=== PATIENT | male | born 1965 | race Hispanic/Latino ===

== ENCOUNTER 2017-03-29 07:26 | Inpatient (IN) | payer BC ==
--- NOTE | 2017-03-29 08:24 | ED PDOC ---
HPI: SOB/CHF/COPD Time Seen by Provider: 03/29/17 07:46 Chief Complaint (Nursing): Shortness Of Breath Chief Complaint (Provider): shortness of breath History Per: Patient History/Exam Limitations: no limitations Onset/Duration Of Symptoms: Days (x 1) Additional Complaint(s): Renato Arriaga is a 51 year old male, with no previous medical history, who presents to the ED with complaints of shortness of breath associated with left calf pain, left ankle swelling and coughing which happened prior to arrival. Patient denies any chest pain and reports similar symptoms occurred yesterday but resolves spontaneously. Patient states to traveling back from [place] 3 days ago which is also when he sprained his left ankle. PMD: Dr. Teddy Kwon Past Medical History Reviewed: Historical Data, Nursing Documentation, Vital Signs Vital Signs: Last Vital Signs Temp 97.6 F 03/29/17 07:41 Pulse 97 H 03/29/17 07:41 Resp 18 03/29/17 07:55 BP 122/75 03/29/17 07:41 Pulse Ox 95 03/29/17 12:28 - Medical History PMH: No Chronic Diseases - Family History Family History: States: Unknown Family Hx - Home Medications Home Medications: Ambulatory Orders Medication Instructions Recorded Glucosa Fonseca 2Kcl/Chondroitin Fonseca 1 cap PO DAILY 03/29/17 [Glucosamine & Chondroitin Cap] Melatonin [Melatonin] 25 mg PO HS 03/29/17 Multivit-Minerals/Folic Acid 1 tab PO DAILY 03/29/17 [Adult Multi Gummies] - Allergies Allergies/Adverse Reactions: Allergies Allergy/AdvReac Type Severity Reaction Status Date / Time No Known Allergies Allergy Verified 03/29/17 07:37 Wells Criteria for PE - Wells Criteria for Pulmonary Embolism Clinical Signs and Symptoms of DVT: Yes P.E is #1 Diagnosis, or Equally Likely: Yes Heart Rate >100: No Immobilization at least 3 days;Surgery previous 4 weeks: No Previous, objectively diagnosed PE or DVT: No Hemoptysis: No Malignancy w/treatment within 6 months, or palliative: No Total Score: 4 Review of Systems ROS Statement: Except As Marked, All Systems Reviewed And Found Negative Cardiovascular: Negative for: Chest Pain, Palpitations Respiratory: Positive for: Cough, SOB with Exertion Musculoskeletal: Positive for: Leg Pain (left calf pain ), Other (left ankle swelling ) Physical Exam - Reviewed Nursing Documentation Reviewed: Yes Vital Signs Reviewed: Yes - Physical Exam Appears: Positive for: Well, Non-toxic, No Acute Distress Head Exam: Positive for: ATRAUMATIC, NORMAL INSPECTION, NORMOCEPHALIC Skin: Positive for: Normal Color, Warm, DRY Eye Exam: Positive for: EOMI, Normal appearance, PERRL ENT: Positive for: Normal ENT Inspection Neck: Positive for: Normal, Painless ROM, Supple Cardiovascular/Chest: Positive for: Regular Rate, Rhythm Respiratory: Positive for: Normal Breath Sounds. Negative for: Decreased Breath Sounds, Accessory Muscle Use, Wheezing, Respiratory Distress Pulses-Dorsalis Pedis (L): 2+ Pulses-Dorsalis Pedis (R): 2+ Gastrointestinal/Abdominal: Positive for: Normal Exam, Bowel Sounds, Soft. Negative for: Tenderness Back: Positive for: Normal Inspection Extremity: Positive for: Normal ROM, Calf Tenderness (left), Capillary Refill ( < 2 seconds ). Negative for: Tenderness, Pedal Edema, Deformity, Swelling Neurologic/Psych: Positive for: Alert, Oriented. Negative for: Motor/Sensory Deficits - Laboratory Results Result Diagrams: 03/29/17 08:36 03/29/17 08:36 - ECG Interpretation Of ECG: NSR @ 96, nonspecific ST abnormality. O2 Sat by Pulse Oximetry: 95 (RA) Pulse Ox Interpretation: Normal - Radiology X-Ray: Read By Radiologist X-Ray Interpretation: No Acute Disease - Progress ED Course And Treament: Pt administered Heparin 8000U IVP and drip initiated. - Physician Consult Information Time Consulting Physican Contacted: 12:00 Physician Contacted: Lee Espinoza Outcome Of Conversation: Admit to ICU. - Critical Care Total Time (In Min): 30 Medical Decision Making Medical Decision Making: Initial Impression: Dyspnea r/o Pulmonary embolism Initial Plan: * EKG * CXR * D-dimer * US duplex lower extremities * Troponin I * PTT * PT * PROBNP * urine dipstick * reevaluation 11:18 CXR FINDINGS: LUNGS: Hyperinflation, manifestations of COPD. No active pulmonary disease. PLEURA: No significant pleural effusion identified. No pneumothorax apparent. CARDIOVASCULAR: Normal. OSSEOUS STRUCTURES: No significant abnormalities. VISUALIZED UPPER ABDOMEN: Normal. OTHER FINDINGS: None. IMPRESSION: No active disease. 11:47 CT chest FINDINGS: PULMONARY ARTERIES: There is extensive pulmonary embolism involving the main pulmonary artery and proximal right and left pulmonary arteries. There is thrombus seen in right upper, middle and lower lobe pulmonary artery vessels and branches as well as left upper and lower lobe pulmonary artery and branches. . AORTA: No acute findings. No thoracic aortic aneurysm. LUNGS: Small infiltrate superior segment left lower lobe. Rule out infarct. Possible pneumonia. PLEURAL SPACES: Unremarkable. No effusion or pneuomothorax. HEART: Normal heart size. There is straightening of the intraventricular septum which may be indicative of right ventricular strain. Please correlate with the EKG findings. LYMPH NODES: No lymphadenopathy. BONES, CHEST WALL: Minimal anterior wedge compression deformity of the T12 vertebra, age indeterminate. No other fracture identified. OTHER FINDINGS: 11 mm nonobstructing calculus mid left kidney. IMPRESSION: Extensive pulmonary thromboembolism involving the main pulmonary artery right and left pulmonary arteries and lobar and segmental vessels bilaterally. Evidence indicative of possible right ventricular strain. Small infiltrate in superior segment left lower lobe which may reflect pneumonia, atelectasis or infarct in the setting of extensive pulmonary embolism. Additional minor findings as above. The above findings were discussed by telephone with Dr. Carlisle at 11:45 a.m. on 03/29/2017. 11:[address] Best paged. 12:25 Dr. Teddy Michel ([facility]ASHEED @ [facility]) notified of patient's diagnosis. Scribe Attestation: Documented by Kassandra Reyes, acting as a scribe for Kassandra Carlisle MD. Provider Scribe Attestation: All medical record entries made by the Scribe were at my direction and personally dictated by me. I have reviewed the chart and agree that the record accurately reflects my personal performance of the history, physical exam, medical decision making, and the department course for this patient. I have also personally directed, reviewed, and agree with the discharge instructions and disposition. Disposition - Clinical Impression Clinical Impression: Saddle pulmonary embolus - Patient ED Disposition Is Patient to be Admitted: Yes - Disposition Disposition Time: 12:05 Condition: SERIOUS - Pt Status Changed To: Hospital Disposition Of: Inpatient - Admit Certification Admit to Inpatient:: After my assessment, the patient will require hospitalization for at least two midnights. This is because of the severity of symptoms shown, intensity of services needed, and/or the medical risk in this patient being treated as an outpatient. - POA Present On Arrival: Deep Vein Thrombosis / PE
[2017-03-29 08:44] LABS: BASO % 0.2 % (0.0-2.0); EOS # 0.3 K/uL (0.0-0.7); EOS % 2.3 % (0.0-4.0); HEMOGLOBIN 15.5 g/dL (12.0-18.0); LYMPH % 18.5 % (20.0-40.0); MEAN CORPUSCULAR HEMOGLOBIN 30.3 pg (27.0-31.0); MEAN CORPUSCULAR HGB CONC 33.7 g/dL (33.0-37.0); MEAN PLATELET VOLUME 7.4 fl (7.2-11.7); MONO # 0.8 K/uL (0.0-0.8); MONO % 7.1 % (0.0-10.0); NEUT % 71.9 % (50.0-75.0); NRBC % 0.1 % (0.0-0.0); RBC 5.13 Mil/uL (4.40-5.90); RED CELL DISTRIBUTION WIDTH 13.3 % (11.5-14.5); WHITE BLOOD COUNT 11.1 K/uL (4.8-10.8)
[2017-03-29 09:03] LABS: ALB/GLOB RATIO 1.5 (1.0-2.1); ALBUMIN 4.6 g/dL (3.5-5.0); ALT/SGPT 49 U/L (21-72); AST/SGOT 40 U/L (17-59); BLOOD UREA NITROGEN 10 mg/dl (9-20); CALCIUM 9.8 mg/dL (8.4-10.2); GFR AFRICAN-AMERICAN > 60; GFR NON-AFRICAN AMERICAN > 60
[2017-03-29 09:06] LABS: INR 1.1 (0.9-1.2); PARTIAL THROMBOPLASTIN TIME 30.7 Seconds (25.6-37.1)
[2017-03-29] MEDS ORDERED: Sodium Chloride 0.9% 50 ML IV ONE (09:48)
[2017-03-29] MEDS ORDERED: Iodixanol 320 MG/ML 100 ML BOTTLE IV ONE (09:48)
[2017-03-29] MEDS ORDERED: Sod Polystyrene Sulf 15 gm/60 ml Oral Susp PO STA (10:49)
--- NOTE | 2017-03-29 11:20 | RAD ---
HISTORY: Shortness of breath. COMPARISON: No prior. TECHNIQUE: Chest PA and lateral FINDINGS: LUNGS: Hyperinflation, manifestations of COPD. No active pulmonary disease. PLEURA: No significant pleural effusion identified. No pneumothorax apparent. CARDIOVASCULAR: Normal. OSSEOUS STRUCTURES: No significant abnormalities. VISUALIZED UPPER ABDOMEN: Normal. OTHER FINDINGS: None. IMPRESSION: No active disease. No preliminary report provided by emergency department personnel.
[2017-03-29] MEDS ORDERED: Sod Polystyrene Sulf 15 gm/60 ml Oral Susp ONE (11:32)
--- NOTE | 2017-03-29 11:49 | CT ---
PROCEDURE: CT Chest with contrast (Pulmonary Angiogram) HISTORY: MARTINEZ COMPARISON: None available. TECHNIQUE: Axial computed tomography images were obtained of the chest in the pulmonary arterial phase of enhancement. Coronal and sagittal reformatted images were created and reviewed. Intravenous contrast dose: 95 mL Visipaque 320 Radiation dose: Total exam DLP = 465.92 mGy-cm. This CT exam was performed using one or more of the following dose reduction techniques: Automated exposure control, adjustment of the mA and/or kV according to patient size, and/or use of iterative reconstruction technique. FINDINGS: PULMONARY ARTERIES: There is extensive pulmonary embolism involving the main pulmonary artery and proximal right and left pulmonary arteries. There is thrombus seen in right upper, middle and lower lobe pulmonary artery vessels and branches as well as left upper and lower lobe pulmonary artery and branches. . AORTA: No acute findings. No thoracic aortic aneurysm. LUNGS: Small infiltrate superior segment left lower lobe. Rule out infarct. Possible pneumonia. PLEURAL SPACES: Unremarkable. No effusion or pneuomothorax. HEART: Normal heart size. There is straightening of the intraventricular septum which may be indicative of right ventricular strain. Please correlate with the EKG findings. LYMPH NODES: No lymphadenopathy. BONES, CHEST WALL: Minimal anterior wedge compression deformity of the T12 vertebra, age indeterminate. No other fracture identified. OTHER FINDINGS: 11 mm nonobstructing calculus mid left kidney. IMPRESSION: Extensive pulmonary thromboembolism involving the main pulmonary artery right and left pulmonary arteries and lobar and segmental vessels bilaterally. Evidence indicative of possible right ventricular strain. Small infiltrate in superior segment left lower lobe which may reflect pneumonia, atelectasis or infarct in the setting of extensive pulmonary embolism. Additional minor findings as above. The above findings were discussed by telephone with Dr. Carlisle at 11:45 a.m. on 03/29/2017.
[2017-03-29] MEDS ORDERED: Heparin 25,000units in D5W 25,000 UNITS/250 ML BAG IV SCH (12:00)
[2017-03-29] MEDS ORDERED: Heparin25000 units/250ml 1/2NS 25,000 UNITS/250 ML BAG IV ONE (12:06)
[2017-03-29] MEDS: Heparin25000 units/250ml 1/2NS 25,000 UNITS/250 ML BAG IV SCH (12:17)
[2017-03-29 12:31] LABS: VENOUS BLOOD GAS PCO2 61 mmHg (40-60); VENOUS BLOOD GAS PO2 18 mm/Hg (30-55); VENOUS BLOOD PH 7.32 (7.32-7.43)
--- NOTE | 2017-03-29 14:17 | CP.CCUPN ---
CCU Subjective - Physician Review Subjective (Free Text): Consultation for ICU admission and initial mgmt.: 61M, PMH only for 30pk yr smoker, admitted today after c/o SOB and MARTINEZ x 2 days , after returning from plane flight from [place]. He aslo suatined a left ankle sprain while traveling and has subsequently developed mild LLE swelling an dpain over distal LLE. Denies any CP, palpitations, wheezing, dizziness, headaches, or focal weakness. Initial eval in ER showed bilat saddle emboli and distal bilat emboli with possible pulm infarct left base, and possible RV strain as visualized on CT chest angio imaging. He shows PSO2 95% on RA oxygen, and BP 122/75 with HR 97. No visible distress and he is comfortable at bed rest. He denies any recent fevers or chills, no cough. Heparin drip started in ER, 1st Trop is negative; to be admitted to Dr. Aggarwal service. Allergies: NKDA Home Meds: None ROS: as above, no other pertinent negs or positives on 10+ system review. Other PMSFH: All recent nursing and physician documentation reviewed and no new information noted relevant to current problems. MAJOR IMPRESSIONS: 1. Acute PTE with pulm infarct, submassive type ( provoked by long sedentary trip) - not associated with hypotension or hypoxemia. 2. Mild Hyperkalemia 3. Smoker / COPD PLAN: 1. Titrating IV Heparin drip for now. Will discuss risks/benefits with PMD / PULM regarding thrombolytic therapy or catheter directed clot lysis. 2. ECHO, serial Trops. 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 4. IVF hydration, will not specifically lower K at this time, check repeat lytes with ongoing IVFs. No arrhythmias noted on telemetry nor any pronounced T waves. 5. No previous h/o of hypercoagulable events, see no immediate need for w/u at this time. 6. Venous Doppler US legs. 7. Nicotine patch. CCU Objective - Vital Signs / Intake & Output Vital Signs (Last 4 hours): Vital Signs Pulse BP Pulse Ox 03/29/17 13:10 78 132/76 03/29/17 13:00 78 132/76 100 03/29/17 12:29 95 - Physical Exam Head: Positive for: Normocephalic Pupils: Positive for: PERRL Extroacular Muscles: Positive for: EOMI Conjunctiva: Negative for: Injected, Icteric Mouth: Positive for: Moist Mucous Membranes Pharnyx: Positive for: Normal. Negative for: ERYTHEMA, EXUDATE Neck: Positive for: Normal Range of Motion. Negative for: JVD, Lymphadenopathy Respiratory/Chest: Positive for: Clear to Auscultation. Negative for: Accessory Muscle Use, Wheezes Cardiovascular: Positive for: Regular Rate and Rhythm. Negative for: Murmurs, Rub Abdomen: Positive for: Normal Bowel Sounds. Negative for: Tenderness, Distention Lower Extremity: Positive for: Edema (LLE only), CALF TENDERNESS (LLE), NORMAL PULSES Neurological: Positive for: GCS=15, CN II-XII Intact, Speech Normal, Motor Func Grossly Intact, Norm Deep Tendon Reflexes Skin: Positive for: Warm. Negative for: Rashes - Medications Active Medications: Active Medications Generic Name Dose Route Start Last Admin Trade Name Freq PRN Reason Stop Dose Admin Heparin Sodium/Sodium Chloride 25,000 units in 250 mls @ 18 mls/hr 03/29/17 12 :15 03/29/17 12:17 Heparin 12199 Units/250ml 1/2 Normal Saline IV 18 mls/hr .[id number] ARELIS Administration Protocol - Patient Studies Lab Studies: Lab Studies 03/29/17 Range/Units 12:11 pO2 18 L (30-55) mm/Hg VBG pH 7.32 (7.32-7.43) VBG pCO2 61 H (40-60) mmHg VBG HCO3 24.8 mmol/L VBG Total CO2 33.3 H (22-28) mmol/L VBG O2 Sat (Calc) 26.7 L (40-65) % VBG Base Excess 3.0 H (0.0-2.0) mmol/L VBG Potassium 4.5 (3.6-5.2) mmol/L Sodium 137.0 (132-148) mmol/L Chloride 99.0 (98-107) mmol/L Glucose 141 H (75-110) mg/dL Lactate 2.9 H (0.7-2.1) mmol/L FiO2 21.0 % Venous Blood Potassium 4.5 (3.6-5.2) mmol/L Laboratory Results - last 24 hr 03/29/17 12:11 pO2 18 L VBG pH 7.32 VBG pCO2 61 H VBG HCO3 24.8 VBG Total CO2 33.3 H VBG O2 Sat (Calc) 26.7 L VBG Base Excess 3.0 H VBG Potassium 4.5 Sodium 137.0 Chloride 99.0 Glucose 141 H Lactate 2.9 H FiO2 21.0 Venous Blood Potassium 4.5 Radiology Interpretations (Free Text): CT CHest Angio study results reviewed CXR: (my interp) shows clear lung kaplan. Critical Care Progress Note - Extremities/Vascular Does the Patient have a Central Venous Catheter?: No Does the Patient need a Central Venous Catheter?: No Does the Patient have a [place] Catheter?: No Does the Patient need a [place] Catheter?: No - Prophylaxis GI Prophylaxis GI: Not Indicated - Prophylaxis DVT Prophylaxis DVT: Not Indicated (Already on Heparin Drip IV)
--- NOTE | 2017-03-29 14:18 | US ---
PROCEDURE: HISTORY: LLE pain, recent travel COMPARISON: None available. TECHNIQUE: Real-time ultrasound scan of the veins with color flow, spectral waveform analysis and compression FINDINGS: Isolated acute DVT confined to the posterior tibial vein. Proximal deep venous system from the common femoral veins to the popliteal vein within normal limits. IMPRESSION: Segmental calf thrombosis confined to the left posterior tibial vein.
[2017-03-29] MEDS ORDERED: Pneumococcal 23-Valent Vaccine IM ONE (16:00)
--- NOTE | 2017-03-30 00:51 | HP ---
HISTORY OF PRESENT ILLNESS: Mr. Arriaga is a 51-year-old male, who was admitted via the emergency room after he experienced shortness of breath on exertion for the past two days, worse on the day of admission. He recently returned from a flight from [place] and indicates that he has sprained his left ankle while he was there, but . For the past several days, he had shortness of breath on and off and it was worsen on the day of admission and he was seen in the emergency room where scan of the chest was remarkable for saddle pulmonary emboli with possible pulmonary infarction on the left base and right ventricular strain. He denies chest pain or palpitation and O2 saturations 95% on room air at present and vital signs are remarkable for blood pressure of 122/75 and pulse rate of 97. PAST MEDICAL HISTORY: Noncontributory. SOCIAL HISTORY: He smokes 1 pack of cigarettes daily, does not drink alcohol, indicates that he quit drinking alcohol several years ago. REVIEW OF SYSTEMS: Essentially unremarkable. PHYSICAL EXAMINATION GENERAL: The patient is alert and oriented, appears to be comfortable. At present, has a heparin drip infusion at bedside. VITAL SIGNS: Stable. HEENT: Mouth shows fair hygiene. JVP flat. CARDIOPULMONARY: Regular. No murmurs or gallop. LUNGS: Clear. No chest wall tenderness. ABDOMEN: Soft, nontender and no organomegaly. EXTREMITIES: Shows no edema or cyanosis, but mild tenderness of left ankle. GENITAL AND RECTAL: Deferred. CENTRAL NERVOUS SYSTEM: Grossly intact. LABORATORY DATA: Remarkable for WBC of 11.1, hemoglobin of 15.5, platelet count of 156,000. Sodium 140, potassium 5.3, BUN of 10, creatinine 0.9, troponin 0.074, pro-BNP 52. Venous blood gas is remarkable for pH of 7.32, pO2 of 18, pCO2 of 61. O2 saturations 26.7, this is on room air. On chest x-ray, no active cardiopulmonary disease noted. EKG is remarkable for normal sinus rhythm, possible left atrial enlargement. Non-specific ST-T changes. Ultrasound of lower extremities is remarkable for segmental calf thrombosis compared to left posterior tibial vein. CT scan of the chest is remarkable for extensive pulmonary thromboembolism involving the main pulmonary artery rather than left pulmonary artery, lobar and segmental vessel bilaterally with indicative of possible rise ventricular strain, small infiltrated superior segmental left lower lobe, which may reflect pneumonia, atelectasis or infarct in the setting of extensive pulmonary embolism. PT 12.0, INR 1.1, D-dimer 4046. IMPRESSION: Acute saddle pulmonary emboli with pulmonary infarction, history of chronic cigarette smoking, one has to rule out mild chronic obstructive pulmonary disease, left lower extremity trauma with ankle sprain, which is probably the start of the pulmonary emboli and is remarkable for deep venous thrombosis. PLAN: Continue IV heparin hydration. We will probably begin oral anticoagulation once IV heparin is therapeutic. No need to workup for coagulopathy in view of the patient's history of traumatic left lower extremity, which appears to be the start of the trauma and the patient also recently returned from a long trip to [place], which accounts for his sedentary activity that probably predisposed him to pulmonary embolism. We will continue therapy as ordered. The case was extensively discussed with the patient. Further therapy would depend on findings. Igor Best MD
[2017-03-30] MEDS: Heparin25000 units/250ml 1/2NS 25,000 UNITS/250 ML BAG IV SCH (03:15)
[2017-03-30 05:43] LABS: BLOOD UREA NITROGEN 9 mg/dl (9-20); CALCIUM 9.5 mg/dL (8.4-10.2); GFR AFRICAN-AMERICAN > 60; GFR NON-AFRICAN AMERICAN > 60
--- NOTE | 2017-03-30 10:36 | CP.PCM.PN ---
Subjective - Date & Time of Evaluation Date of Evaluation: 03/30/17 Time of Evaluation: 10:38 - Subjective Subjective: c/o dry cough with mild pleuritic chest discomfort no sob no hemoptysis Objective - Vital Signs/Intake and Output Vital Signs (last 24 hours): Temp Pulse Resp BP Pulse Ox 98.4 F 82 10 L 143/64 99 03/30/17 08:00 03/30/17 08:00 03/30/17 08:00 03/30/17 08:00 03/30/17 08:00 Intake and Output: 03/30/17 03/30/17 06:59 18:59 Intake Total 99 Balance 99 - Medications Medications: Current Medications Famotidine (Pepcid) 40 mg PO HS [facility] Last Admin: 03/29/17 22:08 Dose: 40 mg Heparin Sodium/Sodium Chloride (Heparin 32837 Units/250ml 1/2 Normal Saline) 25 ,000 units in 250 mls @ 18 mls/hr IV .[id number] [facility] PRN Reason: Protocol Last Admin: 03/30/17 03:15 Dose: 16 mls/hr Nicotine (Nicoderm Cq) 1 patch TD DAILY [facility] Last Admin: 03/29/17 17:17 Dose: Not Given - Labs Labs: 03/30/17 05:00 PT 12.0 Seconds (9.8-13.1) 03/29/17 08:36 INR 1.1 (0.9-1.2) 03/29/17 08:36 APTT 68.5 Seconds (25.6-37.1) H 03/30/17 08:45 - Constitutional Appears: No Acute Distress - Head Exam Head Exam: ATRAUMATIC, NORMAL INSPECTION, NORMOCEPHALIC - Eye Exam Eye Exam: EOMI, Normal appearance, PERRL Pupil Exam: NORMAL ACCOMODATION, PERRL - ENT Exam ENT Exam: Mucous Membranes Moist, Normal Exam - Neck Exam Neck Exam: Full ROM, Normal Inspection. absent: Lymphadenopathy - Respiratory Exam Respiratory Exam: Clear to Ausculation Bilateral, NORMAL BREATHING PATTERN - Cardiovascular Exam Cardiovascular Exam: REGULAR RHYTHM, +S1, +S2. absent: Murmur - GI/Abdominal Exam GI & Abdominal Exam: Soft, Normal Bowel Sounds. absent: Tenderness - Rectal Exam Rectal Exam: NORMAL INSPECTION - Extremities Exam Extremities Exam: Full ROM, Normal Capillary Refill, Normal Inspection. absent : Joint Swelling, Pedal Edema - Back Exam Back Exam: NORMAL INSPECTION - Neurological Exam Neurological Exam: Alert, Awake, CN II-XII Intact, Normal Gait, Oriented x3 - Psychiatric Exam Psychiatric exam: Normal Affect, Normal Mood - Skin Skin Exam: Dry, Intact, Normal Color, Warm Assessment and Plan - Assessment and Plan (Free Text) Assessment: saddle pulmonary emboli with r heart strain positive troponin probably due to cardiac strain l dvt Plan: cardiac eval echo and ekg will probably place on po pradaxa and d/c in am if cleared by cardiology advised to follow up with pmd for coagulopathy workup
[2017-03-30] MEDS ORDERED: Promethazine 6.25 MG/5 ML CUP PO PRN (10:38)
[2017-03-30] MEDS ORDERED: Promethazine 12.5 mg/10 ml Syrup PO PRN (10:45)
--- NOTE | 2017-03-30 11:12 | CP.PCM.CON ---
History of Present Illness - History of Present Illness History of Present Illness: this 51-year-old man arrived in the emergency room been short of breath and describing chest discomfort which had just started. The patient had flown in after having taken a 16 hour flight and having been immobilized in a cramped seat with a sprained left ankle as well. He denies any history of hemoptysis and denies any lightheadedness. The patient has no prior history of chronic lung disease or heart disease and has never been hospitalized. He reports having undergone year surgery which was an outpatient procedure. He has not been on any medication. He denies alcohol intake prior to this trip and denies any recreational drug use. He is not a smoker. He denies any history of hypertension or diabetes. He has never experienced any chest pain or symptoms of congestive cardiac failure. In fact he reports being athletic. Physical examination shows a middle aged pleasant well-built well-nourished manwe'll beats comfortably at 14 breaths per minute and carry on a conversation without any difficulty. His heart rate was 74 bpm regular and his blood pressure is 122/74 mmHg. His jugular venous pressure was not elevated there was no edema over his lower ex images. The pedal pulses were well felt. Next images were warm and nailbeds were pink. There was no central or peripheral cyanosis. On room air, his pulse oximetry was 97-98%. His apex was not palpable. His first and second heart sounds were normal. There was no murmur or gallop there were no rales. His abdomen was soft liver and spleen are not palpable. There was no calf tenderness and Homans sign was negative. His electrocardiogram at admission showed sinus rhythm with a heart rate of 96 bpm but otherwise normal pattern. His electrocardiogram today also shows sinus rhythm and a normal EKG pattern with a heart rate which is in 70s. There is no evidence of right axis deviation and a right bundle branch block. Review of his echocardiogram shows a mildly enlarged left ventricle with its wall motion pattern suggestive off mildly depressed right ventricular systolic function. There was no tricuspid regurgitation. Left ventricular function normally. The septal motion was also appeared normal. His lab data show normal hemoglobin and hematocrit with normal platelet count. His complete metabolic profile was also normal. His troponin at admission was normal and this morning was elevated at 0.[address] angiogram of the chest was reviewed. Impression: acute pulmonary embolism with elevated troponin level secondary to right ventricular strain. The patient is anticoagulated with heparin. He could be switched onto Xarelto. He is hemodynamically stable and adequately oxygenated. I have reassured the patient that the elevation in his troponin has a benign significance and essentially reflects right ventricular strain as a consequence of his pulmonary emboli. I have discussed this with his primary care physician. Past Patient History - Past Medical History & Family History Past Medical History?: No - Past Social History Smoking Status: Light Smoker < 10 Cigarettes Daily - CARDIAC Hx Cardiac Disorders: No - PULMONARY Hx Respiratory Disorders: No - NEUROLOGICAL Hx Neurological Disorder: No - HEENT Hx HEENT Problems: No - RENAL Hx Chronic Kidney Disease: No - ENDOCRINE/METABOLIC Hx Endocrine Disorders: No - HEMATOLOGICAL/ONCOLOGICAL Hx AIDS: No Hx Human Immunodeficiency Virus (HIV): No - INTEGUMENTARY Hx Dermatological Problems: No - MUSCULOSKELETAL/RHEUMATOLOGICAL Hx Falls: No - GENITOURINARY/GYNECOLOGICAL Hx Genitourinary Disorders: No - PSYCHIATRIC Hx Substance Use: No - SURGICAL HISTORY Hx Surgeries: No Other/Comment: "ear surgery" both ears - ANESTHESIA Hx Anesthesia Reactions: No Hx Malignant Hyperthermia: No Has any member of the family had a problem w/ anesthesia?: No Meds Allergies/Adverse Reactions: Allergies Allergy/AdvReac Type Severity Reaction Status Date / Time No Known Allergies Allergy Verified 03/29/17 07:37 - Medications Medications: Current Medications Acetaminophen (Tylenol 325mg Tab) 650 mg PO Q4 PRN PRN Reason: Pain, moderate (4-7) Famotidine (Pepcid) 40 mg PO HS [facility] Last Admin: 03/29/17 22:08 Dose: 40 mg Heparin Sodium/Sodium Chloride (Heparin 69253 Units/250ml 1/2 Normal Saline) 25 ,000 units in 250 mls @ 18 mls/hr IV .[id number] [facility] PRN Reason: Protocol Last Admin: 03/30/17 03:15 Dose: 16 mls/hr Nicotine (Nicoderm Cq) 1 patch TD DAILY [facility] Last Admin: 03/29/17 17:17 Dose: Not Given Promethazine HCl (Phenergan Syrup) 12.5 mg PO Q6 PRN PRN Reason: Cough Results - Vital Signs Recent Vital Signs: Last Vital Signs Temp 98.4 F 03/30/17 08:00 Pulse 82 03/30/17 08:00 Resp 10 L 03/30/17 08:00 BP 143/64 03/30/17 08:00 Pulse Ox 99 03/30/17 08:00 - Labs Result Diagrams: 03/29/17 08:36 03/30/17 05:00 Labs: Laboratory Results - last 24 hr 03/29/17 03/29/17 03/30/17 12:11 19:21 02:30 APTT 90.3 H D 72.5 H D pO2 18 L VBG pH 7.32 VBG pCO2 61 H VBG HCO3 24.8 VBG Total CO2 33.3 H VBG O2 Sat (Calc) 26.7 L VBG Base Excess 3.0 H VBG Potassium 4.5 Sodium 137.0 Chloride 99.0 Glucose 141 H Lactate 2.9 H FiO2 21.0 Potassium Carbon Dioxide Anion Gap BUN Creatinine Est GFR ( Amer) Est GFR (Non-Af Amer) Random Glucose Calcium Troponin I Venous Blood Potassium 4.5 03/30/17 03/30/17 05:00 08:45 APTT 68.5 H pO2 VBG pH VBG pCO2 VBG HCO3 VBG Total CO2 VBG O2 Sat (Calc) VBG Base Excess VBG Potassium Sodium 137 Chloride 102 Glucose Lactate FiO2 Potassium 4.2 Carbon Dioxide 26 Anion Gap 12 BUN 9 Creatinine 0.9 Est GFR ( Amer) > 60 Est GFR (Non-Af Amer) > 60 Random Glucose 102 Calcium 9.5 Troponin I 0.1470 H* Venous Blood Potassium
--- NOTE | 2017-03-30 17:26 | CARD ---
APPROVED REPORT EXAM: Two-dimensional and M-mode echocardiogram with Doppler and color Doppler. Other Information Quality : GoodRhythm : NSR INDICATION Pulmonary Embolism 2D DIMENSIONS IVSd0.99 (0.7-1.1cm)LVDd4.98 (3.9-5.9cm) LVOT Diameter2.71 (1.8-2.4cm)PWd0.97 (0.7-1.1cm) IVSs1.18 (0.8-1.2cm)LVDs3.38 (2.5-4.0cm) FS (%) 32.1 %PWs1.31 (0.8-1.2cm) M-Mode DIMENSIONS Left Atrium (MM)3.91 (2.5-4.0cm)IVSd1.12 (0.7-1.1cm) Aortic Root2.91 (2.2-3.7cm)LVDd4.82 (4.0-5.6cm) Aortic Cusp Exc.2.12 (1.5-2.0cm)PWd1.12 (0.7-1.1cm) IVSs1.62 cmFS (%) 43 % LVDs2.74 (2.0-3.8cm)PWs1.68 cm Mitral Valve E/A ratio0.0 TDI E/Lateral E'0.0E/Medial E'0.0 LEFT VENTRICLE The left ventricle is normal size. There is normal left ventricular wall thickness. The left ventricular function is normal. The left ventricular ejection fraction is 55% There is normal LV segmental wall motion. The left ventricular diastolic function is normal. No left ventricle thrombus noted on this study. There is no ventricular septal defect visualized. There is no left ventricular aneurysm. There is no mass noted in the left ventricle. RIGHT VENTRICLE The right ventricle is moderately to severely dilated. There is normal right ventricular wall thickness. Systolic function is severely reduced. Right Ventricular septal motion is flattened. ATRIA The left atrium size is normal. The right atrium size is normal. The interatrial septum is intact with no evidence for an atrial septal defect. AORTIC VALVE The aortic valve is normal in structure and function. No aortic regurgitation is present. There is no aortic valvular stenosis. There is no aortic valvular vegetation. MITRAL VALVE The mitral valve is normal in structure and function. There is no evidence of mitral valve prolapse. There is no mitral valve stenosis. There is no mitral valve regurgitation noted. TRICUSPID VALVE The tricuspid valve is normal in structure and function. There is no tricuspid valve regurgitation noted. There is no tricuspid valve prolapse or vegetation. There is no tricuspid valve stenosis. PULMONIC VALVE The pulmonary valve is normal in structure and function. There is no pulmonic valvular regurgitation. There is no pulmonic valvular stenosis. GREAT VESSELS The aortic root is normal in size. The ascending aorta is normal in size. The IVC is normal in size and collapses >50% with inspiration. PERICARDIAL EFFUSION The pericardium appears normal. There is no pleural effusion. <Conclusion> Normal LV Systolic Function Moderate to Severe RV Dilitation Severe RV Hypokinesis
--- NOTE | 2017-03-30 17:41 | CARD ---
APPROVED REPORT EKG Measurement Heart [id number] <Conclusion> Normal sinus rhythm with sinus arrhythmia T wave abnormality, consider anterior ischemia Abnormal ECG
--- NOTE | 2017-03-30 18:15 | CARD ---
APPROVED REPORT EKG Measurement Heart [id number] [id number] <Conclusion> Normal sinus rhythm Possible Left atrial enlargement Nonspecific ST abnormality Abnormal ECG
[2017-03-30] MEDS ORDERED: Heparin 25,000units in D5W 25,000 UNITS/250 ML BAG IV SCH ×2 (21:45→22:15)
[2017-03-30] MEDS ORDERED: Heparin25000 units/250ml 1/2NS 25,000 UNITS/250 ML BAG IV SCH (22:15)
[2017-03-31 05:25] LABS: HEMOGLOBIN 15.4 g/dL (12.0-18.0); MEAN CORPUSCULAR HEMOGLOBIN 30.1 pg (27.0-31.0); MEAN CORPUSCULAR HGB CONC 33.4 g/dL (33.0-37.0); RBC 5.14 Mil/uL (4.40-5.90); RED CELL DISTRIBUTION WIDTH 12.9 % (11.5-14.5); WHITE BLOOD COUNT 8.4 K/uL (4.8-10.8)
[2017-03-31 05:37] LABS: BLOOD UREA NITROGEN 15 mg/dl (9-20); CALCIUM 9.6 mg/dL (8.4-10.2); GFR AFRICAN-AMERICAN > 60; GFR NON-AFRICAN AMERICAN > 60
[2017-03-31 06:13] LABS: INR 1.2 (0.9-1.2); PARTIAL THROMBOPLASTIN TIME 55.6 Seconds (25.6-37.1); PROTHROMBIN TIME 12.8 Seconds (9.8-13.1)
[2017-03-31 08:22] VITALS: RESP 24; TEMP 98.9; O2SAT 98
--- NOTE | 2017-03-31 08:35 | CP.PCM.PN ---
Subjective - Date & Time of Evaluation Date of Evaluation: 03/31/17 Time of Evaluation: 08:20 - Subjective Subjective: Slept well No dyspnoea or palpitations Stable sinus rhythm overnight HR 78 BPM BP 126/74 mm Hg JVP flat Chest clear, heart sounds pure No calf tenderness May go home on Rivaroxaban 20 mg daily Plans to see his PCP at [facility] within a week. Objective - Vital Signs/Intake and Output Vital Signs (last 24 hours): Temp Pulse Resp BP Pulse Ox 98.9 F 81 24 134/95 H 98 03/31/17 08:21 03/31/17 08:21 03/31/17 08:21 03/31/17 08:21 03/31/17 08:21 Intake and Output: 03/31/17 03/31/17 06:59 18:59 Intake Total 130 232 Balance 130 232 - Medications Medications: Current Medications Acetaminophen (Tylenol 325mg Tab) 650 mg PO Q4 PRN PRN Reason: Pain, moderate (4-7) Last Admin: 03/30/17 13:41 Dose: 650 mg Famotidine (Pepcid) 40 mg PO HS [facility] Last Admin: 03/30/17 22:08 Dose: 40 mg Heparin Sodium/Dextrose (Heparin 25,000 Units/250ml In D5w) 25,000 units in 250 mls @ 16 mls/hr IV .[id number] [facility] PRN Reason: Protocol Last Admin: 03/30/17 22:46 Dose: 16 mls/hr Ketorolac Tromethamine (Toradol) 30 mg IVP Q6 PRN PRN Reason: Pain, moderate (4-7) Nicotine (Nicoderm Cq) 1 patch TD DAILY [facility] Last Admin: 03/30/17 11:59 Dose: Not Given Promethazine HCl (Phenergan Syrup) 12.5 mg PO Q6 PRN PRN Reason: Cough - Labs Labs: 03/31/17 04:30 03/31/17 04:30 PT 12.8 Seconds (9.8-13.1) 03/31/17 04:30 INR 1.2 (0.9-1.2) 03/31/17 04:30 APTT 55.6 Seconds (25.6-37.1) H D 03/31/17 04:30
--- NOTE | 2017-03-31 09:33 | CP.PCM.DIS ---
Provider - Provider Date of Admission: 03/29/17 12:10 Attending physician: Igor Best MD Time Spent in preparation of Discharge (in minutes): 35 Diagnosis - Discharge Diagnosis (1) Deep vein thrombosis of left lower extremity Status: Acute (2) Saddle pulmonary embolus Status: Acute Hospital Course - Lab Results Lab Results: Micro Results 03/29/17 18:45 Naris MRSA Culture (Admit) - Final MRSA NOT DETECTED 03/29/17 13:00 Blood-Venous Blood Culture - Preliminary NO GROWTH AFTER 24 HOURS 03/29/17 12:30 Blood-Venous Blood Culture - Preliminary NO GROWTH AFTER 24 HOURS Most Recent Lab Values WBC 8.4 K/uL (4.8-10.8) 03/31/17 04:30 RBC 5.14 Mil/uL (4.40-5.90) 03/31/17 04:30 Hgb 15.4 g/dL (12.0-18.0) 03/31/17 04:30 Hct 46.2 % (35.0-51.0) 03/31/17 04:30 MCV 90.0 fl (80.0-94.0) 03/31/17 04:30 MCH 30.1 pg (27.0-31.0) 03/31/17 04:30 MCHC 33.4 g/dL (33.0-37.0) 03/31/17 04:30 RDW 12.9 % (11.5-14.5) 03/31/17 04:30 Plt Count 160 K/uL (130-400) 03/31/17 04:30 MPV 7.4 fl (7.2-11.7) 03/29/17 08:36 Neut % (Auto) 71.9 % (50.0-75.0) 03/29/17 08:36 Lymph % (Auto) 18.5 % (20.0-40.0) L 03/29/17 08:36 Canadian % (Auto) 7.1 % (0.0-10.0) 03/29/17 08:36 Eos % (Auto) 2.3 % (0.0-4.0) 03/29/17 08:36 Baso % (Auto) 0.2 % (0.0-2.0) 03/29/17 08:36 Neut # 8.0 K/uL (1.8-7.0) H 03/29/17 08:36 Lymph # 2.0 K/uL (1.0-4.3) 03/29/17 08:36 Canadian # 0.8 K/uL (0.0-0.8) 03/29/17 08:36 Eos # 0.3 K/uL (0.0-0.7) 03/29/17 08:36 Baso # 0.0 K/uL (0.0-0.2) 03/29/17 08:36 PT 12.8 Seconds (9.8-13.1) 03/31/17 04:30 INR 1.2 (0.9-1.2) 03/31/17 04:30 APTT 55.6 Seconds (25.6-37.1) H D 03/31/17 04:30 D-Dimer, Quantitative 4046 ng/mlDDU (0-230) H 03/29/17 08:36 pO2 18 mm/Hg (30-55) L 03/29/17 12:11 VBG pH 7.32 (7.32-7.43) 03/29/17 12:11 VBG pCO2 61 mmHg (40-60) H 03/29/17 12:11 VBG HCO3 24.8 mmol/L 03/29/17 12:11 VBG Total CO2 33.3 mmol/L (22-28) H 03/29/17 12:11 VBG O2 Sat (Calc) 26.7 % (40-65) L 03/29/17 12:11 VBG Base Excess 3.0 mmol/L (0.0-2.0) H 03/29/17 12:11 VBG Potassium 4.5 mmol/L (3.6-5.2) 03/29/17 12:11 Sodium 137.0 mmol/L (132-148) 03/29/17 12:11 Chloride 99.0 mmol/L (98-107) 03/29/17 12:11 Glucose 141 mg/dL (75-110) H 03/29/17 12:11 Lactate 2.9 mmol/L (0.7-2.1) H 03/29/17 12:11 FiO2 21.0 % 03/29/17 12:11 Sodium 138 mmol/l (132-148) 03/31/17 04:30 Potassium 4.3 MMOL/L (3.6-5.0) 03/31/17 04:30 Chloride 103 mmol/L (98-107) 03/31/17 04:30 Carbon Dioxide 26 mmol/L (22-30) 03/31/17 04:30 Anion Gap 14 (10-20) 03/31/17 04:30 BUN 15 mg/dl (9-20) 03/31/17 04:30 Creatinine 0.8 mg/dL (0.8-1.5) 03/31/17 04:30 Est GFR ( Amer) > 60 03/31/17 04:30 Est GFR (Non-Af Amer) > 60 03/31/17 04:30 Random Glucose 103 mg/dL (75-110) 03/31/17 04:30 Calcium 9.6 mg/dL (8.4-10.2) 03/31/17 04:30 Total Bilirubin 0.7 mg/dl (0.2-1.3) 03/29/17 08:36 AST 40 U/L (17-59) 03/29/17 08:36 ALT 49 U/L (21-72) 03/29/17 08:36 Alkaline Phosphatase 90 U/L (38-126) 03/29/17 08:36 Troponin I 0.1470 ng/mL (0.00-0.120) H* 03/30/17 05:00 NT-Pro-B Natriuret Pep 52.0 pg/ml (0-900) 03/29/17 08:36 Total Protein 7.6 G/DL (6.3-8.2) 03/29/17 08:36 Albumin 4.6 g/dL (3.5-5.0) 03/29/17 08:36 Globulin 3.0 gm/dL (2.2-3.9) 03/29/17 08:36 Albumin/Globulin Ratio 1.5 (1.0-2.1) 03/29/17 08:36 Venous Blood Potassium 4.5 mmol/L (3.6-5.2) 03/29/17 12:11 - Hospital Course Hospital Course: shortness of breath resolved no chest pains Discharge Exam - Head Exam Head Exam: ATRAUMATIC, NORMAL INSPECTION, NORMOCEPHALIC - Eye Exam Eye Exam: EOMI, Normal appearance, PERRL Pupil Exam: NORMAL ACCOMODATION, PERRL - GI/Abdominal Exam GI & Abdominal Exam: Normal Bowel Sounds - Rectal Exam Rectal Exam: NORMAL INSPECTION - Neurological Exam Neurological exam: Alert, CN II-XII Intact, Normal Gait, Oriented x3, Reflexes Normal - Psychiatric Exam Psychiatric exam: Normal Affect, Normal Mood - Skin Skin Exam: Dry, Intact, Normal Color, Warm Discharge Plan - Follow Up Plan Condition: SERIOUS Disposition: HOME/ ROUTINE Patient education suggested?: Yes Instructions: Pulmonary Embolism (DC), Pulmonary Embolism (GEN) Additional Instructions: discharge today pt wants to follow up with his private dr in [place]
[2017-03-31 10:37] VITALS: BP 141/89; PULSE 82
== END 2017-03-31 10:40 | disposition home or self-care (01) | DRG 299 ==
LOC: H.ER 07:26 → H.ERHOLD 12:10 → H.ICU/CCU 13:23
PROVIDERS: ADMIT Internal Medicine Pulmonary Disease; ATTEND Internal Medicine Pulmonary Disease
PROC: 3E0234Z Introduction of Serum, Toxoid and Vaccine into Muscle, Percutaneous Approach (ICD-10-PCS; principal; 2017-03-29)
DX: I82.402 Acute embolism and thrombosis of unspecified deep veins of left lower extremity (principal); I26.92 Saddle embolus of pulmonary artery without acute cor pulmonale; E87.5 Hyperkalemia; Z23 Encounter for immunization; F17.210 Nicotine dependence, cigarettes, uncomplicated; J44.9 Chronic obstructive pulmonary disease, unspecified; S93.402A Sprain of unspecified ligament of left ankle, initial encounter; X58.XXXA Exposure to other specified factors, initial encounter; Y93.9 Activity, unspecified; Y92.9 Unspecified place or not applicable